=== PATIENT | male | born 1980 | race African-American/Black ===

== ENCOUNTER 2021-06-13 09:38 | Emergency (ER) | payer OTHER ==
[2021-06-13] MEDS ORDERED: Ketorolac Tromethamine 30 MG/ML VIAL ONE (10:05)
== END 2021-06-13 10:06 | disposition home or self-care (01) ==
LOC: CSHERS 09:38
DX: M54.50 Low back pain, unspecified (principal); M54.2 Cervicalgia; V49.49XA Driver injured in collision with other motor vehicles in traffic accident, initial encounter; Y92.481 Parking lot as the place of occurrence of the external cause
CPT/HCPCS: 96372; J1885

== ENCOUNTER 2022-02-06 10:46 | Emergency (ER) | payer OTHER, SELFPAY ==
[2022-02-06] MEDS ORDERED: cefTRIAXone\\ROCEPHIN 500 MG VIAL ONE (11:51)
[2022-02-06] MEDS ORDERED: Azithromycin 250 MG TAB ONE (11:52)
[2022-02-06] MEDS ORDERED: Sterile Water 10 ML ONE (11:52)
[2022-02-06 20:53] LABS: Chlam.trachomatis by PCR,Urine Not Detected (NotDetected)
== END 2022-02-06 12:13 | disposition home or self-care (01) ==
LOC: CSHERS 10:46
DX: R30.0 Dysuria (principal); Z20.2 Contact with and (suspected) exposure to infections with a predominantly sexual mode of transmission
CPT/HCPCS: 87491; 87591; 96372; 99283; J0696

== ENCOUNTER 2023-09-07 08:47 | Emergency (ER) | payer SELFPAY ==
[2023-09-07] MEDS ORDERED: Ketorolac Tromethamine 30 MG (1 mL) VIAL ONE (09:49)
== END 2023-09-07 10:40 | disposition home or self-care (01) ==
LOC: CSHERS 08:47
DX: S39.012A Strain of muscle, fascia and tendon of lower back, initial encounter (principal); V89.2XXA Person injured in unspecified motor-vehicle accident, traffic, initial encounter
CPT/HCPCS: 72072; 96372; J1885

== ENCOUNTER 2023-10-08 16:32 | Emergency (ER) | payer SELFPAY ==
[2023-10-08] MEDS ORDERED: Azithromycin 250 MG TAB ONE (17:55)
[2023-10-08] MEDS ORDERED: Sterile Water 10 ML ONE (17:56)
[2023-10-08] MEDS ORDERED: cefTRIAXone (ROCEPHIN) 500 MG VIAL ONE (17:56)
[2023-10-09 13:53] LABS: Chlam.trachomatis by PCR,Urine Not Detected (NotDetected); GC N.gonorrhoeae PCR,UrineVOID Not Detected (NotDetected)
== END 2023-10-08 18:01 | disposition home or self-care (01) ==
LOC: CSHERS 16:32
DX: N34.2 Other urethritis (principal)
CPT/HCPCS: 87491; 87591; 96372; 99283; J0696